=== PATIENT | male | born 1970 | race Two or more races ===

== ENCOUNTER 2025-07-05 15:50 | Inpatient (IN) | payer BC, SELFPAY ==
[2025-07-05] VITALS (7 sets, daily range): BP systolic 120–149; BP diastolic 76–96; PULSE 69–84; RESP 18–20; TEMP 37.2; O2SAT 95–99; BMI 29.9
--- NOTE | 2025-07-05 15:57 | EKG_ITS ---
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
--- NOTE | 2025-07-05 16:23 | XR_ITS ---
Examination: PA lateral chest 2 views TECHNIQUE: Upright PA lateral chest 2 views Date and time: July 05, 2025 1630 hours INDICATIONS: Chest pain hypertension shortness of breath 2 days FINDINGS: Normal heart size No pneumonia or pulmonary edema. Intact osseous structures IMPRESSION: No active disease.
--- NOTE | 2025-07-05 16:23 | PD.EDRME ---
Rapid Medical Screening Exam RME Arrival date/time: 07/05/25 15:50 54-year-old male presents emergency department today for complaint of chest pain ongoing x 3 days patient reports he originally woke up with chest pain 3 nights ago. Patient does report taking Cosentyx as well as testosterone Patient to be seen in the main ER for further evaluation Chief Complaint: Chest Pain Vital signs: Vital Signs Temperature 99 F 07/05/25 16:08 Pulse Rate 79 07/05/25 16:08 Respiratory Rate 18 07/05/25 16:08 Blood Pressure 149/92 H 07/05/25 16:08 Pulse Oximetry (%) 99 07/05/25 16:08 Oxygen Delivery Method Room Air 07/05/25 16:08
[2025-07-05 17:04] LABS: Collection Type, Urine Clean Catch; RBC,Urine 0 /hpf (0-3); Squamous Epithelial Cell,Urine 0 /hpf (0-5); WBC,Urine 0 /hpf (0-5)
[2025-07-05 17:21] LABS: Bilirubin,Urine Negative (Negative); Blood,Urine Negative (Negative); Clarity,Urine Clear (Clear/Hazy); Color,Urine Lt Yellow (Lt Yel-Yel); Glucose, Urine Negative (Negative); Ketones,Urine Negative (Negative); Leukocyte Esterase,Urine Negative (Negative); Nitrite,Urine Negative (Negative); PH,Urine 7.0 (5.0-7.0); Protein,Urine Negative (Neg - Trace); Specific Gravity,Urine 1.020 (1.001-1.035); Urobilinogen,Urine 1.0 mg/dL (0.0-1.0)
[2025-07-05 17:22] LABS: Basophils # (Auto) 0.0 Thou/mm3 (0.0-0.2); Basophils % (Auto) 0 % (0-2.5); Eosinophils # (Auto) 0.1 Thou/mm3 (0.0-0.5); Eosinophils % (Auto) 1 % (0-10); Hematocrit 46.1 % (41.0-53.0); Hemoglobin 16.0 g/dL (13.5-16.0); Immature Granulocytes Auto 0.02 Thou/mm3 (0.00-0.00); Lymphocytes # (Auto) 1.7 Thou/mm3 (1.0-4.8); Lymphocytes % (Auto) 24 % (10-50); Mean Corpuscular HGB Conc 34.7 g/dl (31.0-37.0); Mean Corpuscular Hemoglobin 32.5 pg (25.0-35.0); Mean Corpuscular Volume 94 fL (80-100); Monocytes # (Auto) 0.7 Thou/mm3 (0.0-0.8); Monocytes % (Auto) 10 % (0-12); Neutrophils # (Auto) 4.4 Thou/mm3 (1.8-7.7); Neutrophils % (Auto) 64 % (37-80); Nucleated Red Blood Cell # 0.00 Thou/mm3 (0.00-0.00); Nucleated Red Blood Cell % 0 /100 WBC (0); Platelet Count 200 Thou/mm3 (140-440); RDW Standard Deviation 42.4 fL (35.1-43.9); Red Blood Count 4.93 Miln/mm3 (4.50-5.90); White Blood Count 6.8 Thou/mm3 (3.8-10.6)
[2025-07-05 17:31] LABS: INR 1.0 (0.9-1.3); Partial Thromboplastin Time 26.6 Seconds (22.0-36.0); Prothrombin Time 10.9 Seconds (9.0-12.2)
[2025-07-05 17:42] LABS: Amphetamine/Methamp Scrn,U Negative (Negative); Barbiturate Screen,Urine Negative (Negative); Benzodiazepines Screen,Urine Negative (Negative); Benzoylecgonine Screen, Ur Negative (Negative); Fentanyl Screen,Urine Negative (Negative); Opiate Screen,Urine Negative (Negative); THC Screen,Urine Negative (Negative)
[2025-07-05 17:43] LABS: B-Type Natriuretic Peptide 238 pg/mL (0-100)
[2025-07-05 17:47] LABS: Alanine Aminotransferase 29 U/L (10-49); Albumin, Serum 4.4 gm/dL (3.5-5.0); Albumin/Globulin Ratio 1.8 (1.2-2.2); Alkaline Phosphatase 94 U/L (46-116); Anion Gap 9 (7-16); Aspartate Amino Transferase 53 U/L (0-34); BUN/Creatinine Ratio 11 Ratio (12-20); Bilirubin,Total 0.7 mg/dL (0.3-1.2); Blood Urea Nitrogen 9 mg/dL (9-23); Calcium 9.4 mg/dL (8.3-10.6); Calcium (Corrected) 9.4 mg/dL (8.5-10.1); Carbon Dioxide 26.5 mMol/L (20.0-31.0); Chloride 105 mMol/L (98-107); Creatinine (Component) 0.8 mg/dL (0.6-1.3); Globulin 2.5 gm/dL (2.3-3.5); Glucose 85 mg/dL (74-106); Magnesium 1.7 mg/dL (1.6-2.6); Osmolality,Calculated 277 (275-295); Potassium 4.2 mMol/L (3.4-5.1); Sodium 140 mMol/L (136-145); Total Protein 6.9 gm/dL (5.7-8.2); eGFR > 60 See Note
[2025-07-05 17:49] LABS: Bacteria,Urine Rare
[2025-07-05 18:00] LABS: Troponin I 9.023 ng/mL (0.0-0.045)
[2025-07-05] MEDS: TICAGRELOR 90 MG TABLET 180 MG PO (18:45)
[2025-07-05] MEDS: ASPIRIN 81 MG CHEW 324 MG PO (18:46)
--- NOTE | 2025-07-05 18:48 | EDNOTE_ITS ---
ED Chest Pain RME/HPI General Chief Complaint: Chest Pain Stated Complaint: Chest pain X 3 days, SOB Time Seen by Provider: 07/05/25 17:58 Arrival date/time: 07/05/25 15:50 RME / HPI RME / HPI narrative: 07/05/25 15:50 54-year-old male presents emergency department today for complaint of chest pain ongoing x 3 days patient reports he originally woke up with chest pain 3 nights ago. Patient does report taking Cosentyx as well as testosterone Patient to be seen in the main ER for further evaluation --------- See MDM for HPI documentation. Related Data Home Medications ?Medication ?Instructions ?Recorded ?Confirmed guselkumab 100 mg/mL subcutaneous See Rx Instructions .Route .COMPLEX 03/13/23 03/14/23 auto-injector (Tremfya) Allergies Allergy/AdvReac Type Severity Reaction Status Date / Time No Known Allergies Allergy Verified 07/05/25 15:56 Review of Systems Review of Systems Systems Reviewed: All systems reviewed, normal except as documented Past Medical History Past Medical History NEUROLOGIC: Negative Neurological Disorders or Seizures CARDIAC: Negative Congestive Heart Failure RESPIRATORY: Negative Chronic Obstructive Pulmonary Disease (COPD) GENITOURINARY: Negative Renal Disease MUSCULOSKELETAL: Negative Musculoskeletal Disorders ENDOCRINE: Negative Diabetes Mellitus Type 1 or Diabetes Mellitus Type 2 OTHER HISTORY: Positive Chicken Pox; Negative Autoimmune Disease, Blood Transfusions or Anesthesia Reactions Family History FAMILY HISTORY: Positive Family Cancer (MATERNAL AUNT) Surgical History SURGICAL: Positive Abdominal Surgery Social History SMOKING STATUS: Current every day smoker SUBSTANCE USE: does not use ED Exam Narrative Physical exam: See MDM for physical exam documentation. Course Course Course Narrative: CXR is ordered for determining the etiology of chest pain. Quality Measures none Orders Category Date Time Status EKG (ED ONLY) *Do not use* NOW Care 07/05/25 15:57 Completed Insert IV NOW Care 07/05/25 18:34 Active NPO after Midnight ONCE Care 07/05/25 21:26 Active Notify provider NOW Care 07/05/25 18:35 Active Consult to Cardiology Stat Cons 07/05/25 19:54 Ordered Diet NPO after Midnight Diet 07/06/25 00:01 Active EKG (ED Only) Stat Exams 07/05/25 15:57 Draft XR chest 2V Stat Exams 07/05/25 16:23 Completed B-Type Natriuretic Peptide Stat Lab 07/05/25 16:45 Completed CBC Stat Lab 07/05/25 16:45 Completed Comprehensive Metabolic Panel Stat Lab 07/05/25 16:45 Completed Drug Screen,Urine Stat Lab 07/05/25 16:55 Completed Hemoglobin A1C [Glycohemoglobin w (eAG)] AM DRAW Lab 07/06/25 05:00 Ordered Lipid Panel AM DRAW Lab 07/06/25 05:00 Ordered Magnesium Stat Lab 07/05/25 16:45 Completed PT [Prothrombin Time with INR] AM DRAW Lab 07/06/25 05:00 Ordered PTT [Partial Thromboplastin Time] Stat Lab 07/06/25 01:30 Ordered Partial Thromboplastin Time AM DRAW Lab 07/07/25 05:00 Ordered Partial Thromboplastin Time Stat Lab 07/05/25 16:45 Completed Prothrombin Time with INR AM DRAW Lab 07/07/25 05:00 Ordered Prothrombin Time with INR Stat Lab 07/05/25 16:45 Completed Troponin I Q6HR Lab 07/06/25 00:00 Ordered Troponin I Q6HR Lab 07/06/25 06:00 Ordered Troponin I Q6HR Lab 07/06/25 12:00 Ordered Troponin I Stat Lab 07/05/25 16:45 Completed Troponin I Stat Lab 07/05/25 21:46 Completed Urinalysis Stat Lab 07/05/25 16:55 Completed Aspirin Chew Med 07/05/25 18:35 Discontinued 324 mg PO X1 ONE Aspirin [Ecotrin] Med 07/06/25 09:00 Active 81 mg PO QDAY Atorvastatin Calcium [Lipitor] Med 07/05/25 21:30 Active 80 mg PO HS Heparin Inj Med 07/05/25 19:00 Discontinued 4,000 unit IV X1 ONE Heparin/D5w 25K 250 ML Ivpb [Heparin in D5w Ivpb] Med 07/05/25 19:00 Active 25,000 unit in 250 ml IV 11.543 units/kg/hr Metoprolol Succinate Xl [Toprol Xl] Med 07/06/25 09:00 Active 25 mg PO QDAY Metoprolol Succinate Xl [Toprol Xl] Med 07/05/25 18:52 Discontinued 25 mg PO X1 ONE Nitroglycerin Oint 2% [Nitro-paste Oint 2%] Med 07/05/25 18:52 Discontinued 1 inch TOP X1 ONE Nitroglycerin [Nitro-dur Patch] Med 07/05/25 21:28 Discontinued 0.4 mg TOP Q6HR PRN Ticagrelor [Brilinta] Med 07/05/25 18:35 Discontinued 180 mg PO X1 ONE Ticagrelor [Brilinta] Med 07/06/25 09:00 Active 90 mg PO BID Vital Signs Vital signs: Vital Signs Temperature 99 F 07/05/25 16:08 Pulse Rate 79 07/05/25 16:08 Respiratory Rate 18 07/05/25 16:08 Blood Pressure 149/92 H 07/05/25 16:08 Pulse Oximetry (%) 99 07/05/25 16:08 Oxygen Delivery Method Room Air 07/05/25 16:08 Chest Pain MDM Narrative MDM Narrative:: This section includes all my notes and documentations, including HPI, PE, and ED course. Damián Washington MD HPI: 54yo male here with chest pain shortness of breath and fatigue and malaise for the last few days. Severely worse at the gym a couple of hours ago. No other complaints. ROS: All negative except as documented in HPI. Physical Exam: General: Alert and oriented. No acute distress when remaining still. Eyes: Conjunctivae and lids clear. ENT: No nasal congestion. Neck: Supple. Heart: RRR. Lungs: No respiratory distress. Good air movement. No rhonchi, wheezing, rales. Abdomen: Soft and nontender. Skin: Warm and dry. Neuro: Alert and oriented X 3. I reviewed all diagnostic test results. My interpretation of the EKG is sinus rhythm with no acute ST?T changes. My interpretation of the chest x-ray is NAD. Blood and urine tests tests remarkable for troponin 9.023. At this point, diagnoses include NSTEMI. Treatment here from me included ASA, heparin bolus and drip, oral metoprolol, topical nitroglycerin, and oral Brilinta. I discussed the case with our mounter brass wind instruments and hospitalist. About the presentation and exam and diagnostics and treatments here. And need of further care in the hospital. Will accept the patient. Damián Washington MD Patient data External records reviewed:: [facility] previous records (Per chart review, patient has no relevant previous ED visits.) Clinical information provided by:: patient Social determinants that could affect healthcare access:: none Patient has the following chronic illnesses:: none How is presenting disease/condition affected by chronic disease/condition?: no chronic disease Evaluation data The following diagnostics were reviewed and interpreted by me:: lab results, radiology exam(s) and EKG tracing(s) Lab and/or radiology exams considered but not ordered:: none Interpretation Summary: I reviewed all diagnostic test results. My interpretation of the EKG is sinus rhythm with no acute ST?T changes. My interpretation of the chest x-ray is NAD. Blood and urine tests tests remarkable for troponin 9.023. Medications / Prescriptions Medications or Prescriptions considered but not ordered:: none Medication administrations:: Medication Administration History Acetaminophen (Acetaminophen 325 Mg Tablet) 650 mg PO Q6H PRN PRN Reason: Fever >100.4 Stop: 08/04/25 21:34 Acetaminophen (Acetaminophen 325 Mg Tablet) 650 mg PO Q6H PRN PRN Reason: PAIN SCALE 1-3 (mild Stop: 08/04/25 21:34 Aspirin (Aspirin Ec 81 Mg Tabec) 81 mg PO QDAY ON LICENSE OF [facility] Stop: 08/05/25 08:59 Atorvastatin Calcium (Atorvastatin Calcium 20 Mg Tablet) 80 mg PO HS ON LICENSE OF [facility] Stop: 08/04/25 21:29 Last Admin: 07/05/25 22:34 Dose: 80 mg Documented By: LIYAH Hydroxyzine HCl (Hydroxyzine Hcl 25 Mg Tablet) 25 mg PO Q6HR PRN PRN Reason: ANXIETY/Insomnia Stop: 08/04/25 21:58 Last Admin: 07/05/25 23:02 Dose: 25 mg Documented By: LIYAH Heparin Sodium/Dextrose (Heparin In D5w Ivpb) 25,000 unit in 250 mls @ 10 mls/hr IV .Q24H ON LICENSE OF [facility]; Protocol Stop: 07/19/25 18:59 Last Admin: 07/05/25 19:30 Dose: 11.543 units/kg/hr, 10 mls/hr Documented By: SF Co-signed By: LIYAH Metoprolol Succinate (Metoprolol Succinate Xl 25 Mg Tabcr) 25 mg PO QDAY ON LICENSE OF [facility] Stop: 08/05/25 08:59 Nitroglycerin (Nitroglycerin Oint 2% 1 Inch Packet) 1 inch TOP Q6HR ON LICENSE OF [facility] Stop: 08/05/25 00:00 Ticagrelor (Ticagrelor 90 Mg Tablet) 90 mg PO BID ON LICENSE OF [facility] Stop: 08/05/25 08:59 Discontinued Medications Aspirin (Aspirin 81 Mg Chew) 324 mg PO X1 ONE Stop: 07/05/25 18:36 Last Admin: 07/05/25 18:46 Dose: 324 mg Documented By: ANGY Heparin Sodium (Porcine) (Heparin Sod Inj 5000 Unit/Ml Vial) 4,000 unit IV X1 ONE; Protocol Stop: 07/05/25 19:01 Last Admin: 07/05/25 19:29 Dose: 4,000 unit Documented By: DIONY Co-signed By: LIYAH Magnesium Sulfate (Magnesium Sulfate Ivpb) 2 gm in 50 mls @ 25 mls/hr IV X1 ONE Stop: 07/05/25 23:55 Last Admin: 07/05/25 22:44 Dose: 25 mls/hr Documented By: DIONY Metoprolol Succinate (Metoprolol Succinate Xl 25 Mg Tabcr) 25 mg PO X1 ONE Stop: 07/05/25 18:53 Last Admin: 07/05/25 19:24 Dose: 25 mg Documented By: DIONY Nitroglycerin (Nitroglycerin Oint 2% 1 Inch Packet) 1 inch TOP X1 ONE Stop: 07/05/25 18:53 Last Admin: 07/05/25 19:22 Dose: 1 inch Documented By: DIONY Nitroglycerin (Nitroglycerin 0.4 Mg/Hr Patch.Td24) 0.4 mg TOP Q6HR PRN PRN Reason: CHEST PAIN Stop: 08/05/25 00:00 Ticagrelor (Ticagrelor 90 Mg Tablet) 180 mg PO X1 ONE Stop: 07/05/25 18:36 Last Admin: 07/05/25 18:45 Dose: 180 mg Documented By: ANGY Treatment here from me included ASA, heparin bolus and drip, oral metoprolol, topical nitroglycerin, and oral Brilinta. Consultations Consultation(s) initiated? (list below): Yes Consultation #1 (Physician, Specialty, Details): I discussed the case with our mounter brass wind instruments and hospitalist. About the presentation and exam and diagnostics and treatments here. And need of further care in the hospital. Will accept the patient. Diagnosis Chest Pain Differential Diagnosis: pneumothorax, stable angina, unstable angina pectoris, atypical chest pain, st elevation myocardial infarction, costochondritis, chest pain, biliary colic and other (Anxiety) Most likely diagnosis given after review of the tests above:: NSTEMI Admission Indicated Admission indicated?: indicated Explain why admission is indicated or not indicated:: NSTEMI Admission Request Was there a request for admission?: Yes Admission Attestation Admission request attestation: Discussed case with Hospitalist service regarding admission. Discussed patients ED course, exam findings, labs, and radiology results. The Hospitalist [agrees] to accept the patient for admission. Disposition Plan Disposition Plan: Admit Discharge Plan Plan Patient Disposition: Admit Acute Care w/in Hospital Problem List Clinical Impression: Non-ST elevation CA (NSTEMI)
[2025-07-05] MEDS: NITROGLYCERIN OINT 2% 1 INCH PACKET TOP (19:22)
[2025-07-05] MEDS: METOPROLOL SUCCINATE XL 25 MG TABCR PO (19:24)
[2025-07-05] MEDS: HEPARIN SOD INJ 5000 UNIT/ML VIAL 4000 UNIT IV (19:29)
[2025-07-05] MEDS: Heparin/D5w 25K 250 ML Ivpb 25,000 UNIT/250 ML BAG 10 UNIT IV (19:30)
--- NOTE | 2025-07-05 20:42 | ESCONSULT_ITS ---
<Statement entered by Britt Guardado MD - 07/07/25 22:45> I personally examined and evaluated this patient who is 54-year-old male with history of no major medical problems to the hospital severe chest pain lasting 2 days started about Friday night 2 days ago the pain lasted a couple days with EKG changes and troponin elevation suggestive of acute non-ST segment elevation myocardial infarction possible circumflex RCA occlusion. The patient is doing physician Dr. BENITO BLEVINS and patient is stable will start on aspirin Brilinta and heparin scheduled for cholangiogram in the morning condition stable not have any significant chest pain he has mild tightness in the chest. HPI Data of Consult Primary Care Provider: Physician No Primary/Family Consult Narrative History of present illness: A 54-year-old man with a history of psoriasis, psoriatic arthritis (on Cosentyx), and testosterone replacement therapy presented with a three-day history of chest pain. He reported waking up on Friday with pressure-like discomfort in the chest associated with fatigue and mild shortness of breath. The pain intensified at the gym on the day of presentation, prompting an ED visit. He described the pain as a tightness radiating toward the throat with a subsequent sore throat sensation. He denied jaw or arm radiation, diaphoresis, syncope, nausea, or vomiting. He has no past history of coronary artery disease, hypertension, diabetes, or hyperlipidemia, and has never undergone prior chest pain evaluation. He smokes daily, drinks socially with heavier intake on weekends, and works in a high- stress on-call position with the [employer], though his job is not physically demanding. In the ED, his blood pressure decreased from 149/92 to 137/76, heart rate remained stable, and oxygen saturation was normal. EKG showed sinus rhythm with findings consistent with an inferior AL of indeterminate age and T-wave changes. Lab results were significant for troponin 9.023, BNP 238, and AST 53. Chest X- ray revealed no acute disease. Cardiology was consulted, and the patient was diagnosed with NSTEMI. He was started on HEPARIN infusion, ASPIRIN, BRILINTA, NITROGLYCERIN, and METOPROLOL, with plans for cardiac catheterization the following morning. cc:: cc: Review of Systems Review of Systems Narrative Review of Systems: GENERAL: Denies fevers/chills or diaphoresis. HEENT: Denies headache or visual/hearing changes. Denies nasal discharge. NEURO: Denies unusual weakness or difficulty speaking. CARDIO: + chest pain, + palpitations. PULM: + SOB. No coughing, or wheezing. GI: Denies abdominal pain, N/V/C/D/reflux/gas, bright red blood per rectum or melena. Reports having BMs. URO: Denies burning/itching/pain/urinary changes. MSK/EXT/SKIN: Denies joint/skeletal/muscle pain, issues/changes in upper or lower extremities, itchiness, or superficial pain. PSYCH: Cooperative, pleasant mood & affect. The rest of the review of systems is otherwise negative. Exam Vital Signs Temp Pulse Resp BP Pulse Ox O2 Del Method 98.9 F 78 20 136/96 H 96 Room Air 07/05/25 20:36 07/05/25 20:36 07/05/25 20:36 07/05/25 20:36 07/05/25 20:36 07/05/25 20:36 Narrative Exam GENERAL * Normal appearing male HEENT * NCAT.?PRAVIN. Oral mucosa is moist. Patent Nares NECK * Supple, nontender, no JVD. CHEST * RRR, no m/g/r * CTAB, no w/r/r, symmetrical expansion. ABDOMEN * Soft, flat, nontender. No guarding/rebound tenderness/masses. * Bowel sounds presents EXTREMITIES * No edema/cyanosis.? SKIN * Warm and dry, no jaundice/rashes. NEUROMUSCULAR * No lumbar or midline, no CVA, no paraspinal muscle spasm or tenderness. * Moves all 4 extremities well, with full ROM and good CSM. * BENDER x4, CN II-XII grossly intact. * No focal neurologic deficits. PSYCHIATRY * Normal mood and affect, cooperative, no SI or HI or hallucinations. Results Labs 07/05/25 16:45 07/05/25 16:45 Labs: Short CBC 07/05/25 Range/Units 16:45 WBC 6.8 (3.8-10.6) Thou/mm3 Hgb 16.0 (13.5-16.0) g/dL Hct 46.1 (41.0-53.0) % Plt Count 200 (140-440) Thou/mm3 BMP 07/05/25 16:45 Sodium 140 Potassium 4.2 Chloride 105 Carbon Dioxide 26.5 BUN 9 Creatinine 0.8 Glucose 85 Calcium 9.4 Cardiac Enzymes 07/05/25 Range/Units 16:45 Troponin I 9.023 H* (0.0-0.045) ng/mL Liver Function 07/05/25 Range/Units 16:45 Total Bilirubin 0.7 (0.3-1.2) mg/dL AST 53 H (0-34) U/L ALT 29 (10-49) U/L Alkaline Phosphatase 94 (46-116) U/L Albumin 4.4 (3.5-5.0) gm/dL Urine 07/05/25 Range/Units 16:55 Urine Color Lt Yellow (Lt Yel-Yel) Urine Clarity Clear (Clear/Hazy) Urine pH 7.0 (5.0-7.0) Ur Specific [facility] 1.020 (1.001-1.035) Urine Protein Negative (Neg - Trace) Urine Glucose (UA) Negative (Negative) Quality Measures Quality Measures none Medications Home Medications and Allergies Home Medications ?Medication ?Instructions ?Recorded ?Confirmed ?Type guselkumab 100 mg/mL subcutaneous See Rx Instructions .Route .COMPLEX 03/13/23 03/14/23 History auto-injector (Tremfya) Allergies Allergy/AdvReac Type Severity Reaction Status Date / Time No Known Allergies Allergy Verified 07/05/25 15:56 Visit Medications Heparin Sodium/Dextrose (Heparin In D5w Ivpb) 25,000 unit in 250 mls @ 10 mls/hr IV .Q24H ADRI; Protocol Stop: 07/19/25 18:59 Last Admin: 07/05/25 19:30 Dose: 11.543 units/kg/hr, 10 mls/hr Discontinued Medications Aspirin (Aspirin 81 Mg Chew) 324 mg PO X1 ONE Stop: 07/05/25 18:36 Last Admin: 07/05/25 18:46 Dose: 324 mg Heparin Sodium (Porcine) (Heparin Sod Inj 5000 Unit/Ml Vial) 4,000 unit IV X1 ONE; Protocol Stop: 07/05/25 19:01 Last Admin: 07/05/25 19:29 Dose: 4,000 unit Metoprolol Succinate (Metoprolol Succinate Xl 25 Mg Tabcr) 25 mg PO X1 ONE Stop: 07/05/25 18:53 Last Admin: 07/05/25 19:24 Dose: 25 mg Nitroglycerin (Nitroglycerin Oint 2% 1 Inch Packet) 1 inch TOP X1 ONE Stop: 07/05/25 18:53 Last Admin: 07/05/25 19:22 Dose: 1 inch Ticagrelor (Ticagrelor 90 Mg Tablet) 180 mg PO X1 ONE Stop: 07/05/25 18:36 Last Admin: 07/05/25 18:45 Dose: 180 mg Assessment & Plan Plan A 54-year-old man with psoriasis, psoriatic arthritis (on COSENTYX), and testosterone replacement presented with 3 days of chest pain described as pressure-like and radiating to the throat, worsened with exertion. He denied jaw/arm pain, diaphoresis, or GI symptoms. No history of CAD, HTN, DM, or HLD. Social history notable for daily smoking, social alcohol use, and high job stress. In the ED, vitals were stable, EKG showed sinus rhythm with inferior AL of indeterminate age and T-wave changes. Labs revealed TROPONIN 9.023, BNP 238, AST 53. CXR was unremarkable. He was diagnosed with NSTEMI and started on HEPARIN infusion, ASPIRIN, BRILINTA, NITROGLYCERIN, and METOPROLOL. 1. NSTEMI 2. Elevated troponin 3. Tobacco use disorder 4. TESTOSTERONE use RECOMMENDATIONS: Patient admitted for further management of NSTEMI. Cardiology recommends early invasive strategy with cardiac catheterization in the morning for definitive diagnosis and possible PCI. He remains hemodynamically stable with preserved oxygenation. Guideline-directed medical therapy initiated with DAPT (ASPIRIN + BRILINTA), beta-michelle (METOPROLOL), anticoagulation (HEPARIN), and anti-anginal therapy (NITROGLYCERIN). Will monitor serial troponins, telemetry, and strict vitals. Risk stratification places him at high risk (elevated troponin, ischemic EKG changes, ongoing symptoms, smoking history) per FAMILIA/ERICA scoring, supporting urgent cath. Secondary prevention to include initiation of high-intensity statin post-cath, counseling on smoking cessation, alcohol moderation, and long-term risk factor modification. Maintain K>4.0 and Mag>2.0. Case was discussed with attending physician, Dr. Guardado. Benito Blevins, DO PGY II This document was transcribed using voice recognition technology. Minor inaccuracies may be present.
--- NOTE | 2025-07-05 21:39 | ESHP_ITS ---
Documentation for date of: 07/05/25 [facility] History of Present Illness Chief complaint: Chest pain 3 days, shortness of breath History of present illness: 54-year-old male with history of psoriasis and psoriatic arthritis on Cosentyx, and testosterone replacement therapy, who presents with chest pain ongoing for 3 days. He reports waking up Friday with pressure-like chest pain associated with fatigue and mild shortness of breath. Pain worsened at the gym today, prompting ED visit. Describes pain as tightness radiating to throat with sore throat sensation afterward. No radiation to jaw or arm, no diaphoresis, no syncope, no nausea/vomiting. He denies prior cardiac disease, hypertension, diabetes, or hyperlipidemia. No prior chest pain workups. 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 In the ED: BP 149/92 --> 137/76, HR stable, SpO2 normal. EKG: sinus rhythm, inferior NC of indeterminate age, T-wave abnormalities. Labs: troponin 9.023, BNP 238, AST 53. CXR NAD. Cardiology consulted, diagnosed NSTEMI, started heparin drip, ASA, Brilinta, nitro, metoprolol, plan for cath in AM. Review of Systems (ROS): * Constitutional: +fatigue, -fever, -chills, -weight loss * Cardiac: +chest tightness, ?palpitations, ?syncope * Respiratory: +SOB, ?cough, ?hemoptysis * GI: ?abdominal pain, -nausea/vomiting * : ?dysuria, ?hematuria * Neuro: ?weakness, ?vision/speech change * MSK: +joint/back pain (psoriatic arthritis) * Skin: +psoriasis * Psych: occasional anxiety All other systems negative. 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, high stress, always environmental health and safety manager * Lives with partner Exam Vital Signs Temp Pulse Resp BP Pulse Ox O2 Del Method 98.9 F 78 20 136/96 H 96 Room Air 07/05/25 20:36 07/05/25 20:36 07/05/25 20:36 07/05/25 20:36 07/05/25 20:36 07/05/25 20:36 Narrative Exam General: Alert, oriented, NAD at rest HEENT: Clear conjunctiva, throat with mild soreness by history Neck: Supple, no JVD CV: RRR, no murmurs/rubs/gallops Lungs: Clear, no distress Chest: Mild bilateral gynecomastia noted, nontender, no nipple discharge Abdomen: Soft, NTND, +BS Back: No CVA tenderness Skin: Warm, dry, no psoriatic lesions noted on exam Neuro: A&O ?3, no focal deficits Results: Labs 07/05/25 16:45 07/05/25 16:45 Labs: Short CBC 07/05/25 Range/Units 16:45 WBC 6.8 (3.8-10.6) Thou/mm3 Hgb 16.0 (13.5-16.0) g/dL Hct 46.1 (41.0-53.0) % Plt Count 200 (140-440) Thou/mm3 BMP 07/05/25 16:45 Sodium 140 Potassium 4.2 Chloride 105 Carbon Dioxide 26.5 BUN 9 Creatinine 0.8 Glucose 85 Calcium 9.4 Cardiac Enzymes 07/05/25 Range/Units 16:45 Troponin I 9.023 H* (0.0-0.045) ng/mL Liver Function 07/05/25 Range/Units 16:45 Total Bilirubin 0.7 (0.3-1.2) mg/dL AST 53 H (0-34) U/L ALT 29 (10-49) U/L Alkaline Phosphatase 94 (46-116) U/L Albumin 4.4 (3.5-5.0) gm/dL Urine 07/05/25 Range/Units 16:55 Urine Color Lt Yellow (Lt Yel-Yel) Urine Clarity Clear (Clear/Hazy) Urine pH 7.0 (5.0-7.0) Ur Specific [place] 1.020 (1.001-1.035) Urine Protein Negative (Neg - Trace) Urine Glucose (UA) Negative (Negative) Quality Measures Quality Measures VTE therapy Medications Home Medications and Allergies Home Medications ?Medication ?Instructions ?Recorded ?Confirmed ?Type guselkumab 100 mg/mL subcutaneous See Rx Instructions .Route .COMPLEX 03/13/23 03/14/23 History auto-injector (Tremfya) Allergies Allergy/AdvReac Type Severity Reaction Status Date / Time No Known Allergies Allergy Verified 07/05/25 15:56 Visit Medications Heparin Sodium/Dextrose (Heparin In D5w Ivpb) 25,000 unit in 250 mls @ 10 mls/hr IV .Q24H ADRI; Protocol Stop: 07/19/25 18:59 Last Admin: 07/05/25 19:30 Dose: 11.543 units/kg/hr, 10 mls/hr Discontinued Medications Aspirin (Aspirin 81 Mg Chew) 324 mg PO X1 ONE Stop: 07/05/25 18:36 Last Admin: 07/05/25 18:46 Dose: 324 mg Heparin Sodium (Porcine) (Heparin Sod Inj 5000 Unit/Ml Vial) 4,000 unit IV X1 ONE; Protocol Stop: 07/05/25 19:01 Last Admin: 07/05/25 19:29 Dose: 4,000 unit Metoprolol Succinate (Metoprolol Succinate Xl 25 Mg Tabcr) 25 mg PO X1 ONE Stop: 07/05/25 18:53 Last Admin: 07/05/25 19:24 Dose: 25 mg Nitroglycerin (Nitroglycerin Oint 2% 1 Inch Packet) 1 inch TOP X1 ONE Stop: 07/05/25 18:53 Last Admin: 07/05/25 19:22 Dose: 1 inch Ticagrelor (Ticagrelor 90 Mg Tablet) 180 mg PO X1 ONE Stop: 07/05/25 18:36 Last Admin: 07/05/25 18:45 Dose: 180 mg Assessment & Plan Plan 54-year-old male with psoriasis/psoriatic arthritis on Cosentyx and testosterone therapy, current smoker, presenting with 3 days of chest pain and shortness of breath, found to have elevated troponin and ischemic EKG changes, consistent with NSTEMI, type I. # NSTEMI, type 1 54yo M with 3 days of chest pain/SOB, troponin 9.023 EKG with inferior NC and T-wave abnormalities. Cardiology consulted, plan for cath tomorrow. Plan: * Continue heparin drip per protocol * Aspirin 325 mg load then 81 mg daily * Brilinta 90 mg BID * Metoprolol succinate 25 mg daily (hold if HR < 50) * Nitro patch q6h PRN (hold SBP < 100, MAP < 65, HR < 50 or) * Atorvastatin 80 mg nightly * NPO after midnight, cath in AM * Repeat EKG with recurrent pain * Trend troponins # Hyperlipidemia screening No prior history, screening warranted. Plan: * Lipid panel AM * Continue atorvastatin 80 mg nightly # Diabetes screening No prior DM, glucose 85. Plan: * Order HbA1c # Tobacco use disorder Current daily smoker. Plan: * Counseling provided * Offer nicotine patch/gum if needed # Psoriasis / Psoriatic arthritis On Cosentyx, switched from Tremfya, ongoing joint pain. Plan: * Hold biologic while inpatient * Resume with his outpatient derm/rheum specialist # Testosterone replacement therapy # Gynecomastia On TRT ?2 yrs, possible contributor to CAD risk, with noted gynecomastia. Plan: * Holding inpatient * Monitor clinically * Outpatient endocrinology/PCP follow-up for risk/benefit discussion Health Maintenance Disposition: Admit to telemetry, cardiology following Feeding: Cardiac diet, NPO after midnight Thromboprophylaxis: On therapeutic heparin drip GI prophylaxis: Not indicated Code Status: Full Code ----- Plan discussed with attending physician Dr. Yuri Christiansen MD PGY-1 Internal Medicine Attending Provider Attestation/Addendum I have examined the patient, reviewed labs and imaging findings, discussed the case with the resident(s), and reviewed entered orders. I agree with the plan of care as outlined in this note, with these additional summaries/recommendations: After examination of the patient and review of the clinical data, I feel that this patient needs admission to the hospital for further treatment and evaluation. Patient is a 54-year-old male with a medical history of psoriatic arthritis, low testosterone, chronic smoker, and migraine headaches presents to [facility] emergency department on 07/05/2025 with chief complaint of chest pain. Patient and seen at bedside. Patient presented with chest pain/pressure, substernal, and radiation to the neck. Given typical features, this is concerning for NSTEMI type I from ACS or plaque rupture. FAMILIA score 2 points indicating 8% risk at 14 days of all cause mortality. Sana score 74 points indicating 1.8% probability of from admission to 6 months. Troponin elevated to 9.023. EKG shows ST changes in aVL, V5, and V6. Admit to telemetry, troponin until downtrending, serial EKGs if chest pain returns, and echocardiogram. Order CAD risk factor screening with A1c, lipid panel, TSH. Titrate O2 as needed for symptoms. For antiplatelet therapy patient received loading dose of aspirin 325 mg p.o. x 1 and Brilinta. Continue aspirin 81 mg p.o. daily and will follow-up with cardiology in AM if additional dose of Brilinta required. Start anticoagulation with heparin gtt. Target APTT of 60 to 80 seconds. Plaque stabilization with atorvastatin 80 mg p.o. nightly. Cardiac remodeling prevention with beta-michelle. We will defer MICHAELA/ARB till after cardiac catheterization. Nitroglycerin or morphine as needed for chest pain. N.p.o. after midnight for cardiac catheterization. In-house cardiology following, recommendations appreciated. We will director of counseling patient on smoking cessation once more improved. He was previously prescribed sumatriptan for migraine headaches and recommended to discontinue given cardiovascular side effects. Patient was also recently prescribed Cosentyx for rheumatoid arthritis which should also be held until reviewed by machinist/machine builder given this medications cardiovascular risk factors. Patient reportedly also takes testosterone replacement therapy and should be held until cleared by cardiology or discontinued. Patient updated on the plan and in agreement. All questions answered to satisfaction. Please see residents note for additional details of management. Dr. Yuri MD
[2025-07-05 22:20] LABS: Troponin I 8.960 ng/mL (0.0-0.045)
[2025-07-05] MEDS: ATORVASTATIN CALCIUM 20 MG TABLET 80 MG PO (22:34)
[2025-07-05] MEDS: Magnesium Sulfate 2 GM Ivpb 2 GM/50 ML BAG IV (22:44)
[2025-07-06] VITALS (23 sets, daily range): BP systolic 104–153; BP diastolic 53–81; PULSE 52–83; RESP 12–98; TEMP 36.2–37.1; O2SAT 96–100
[2025-07-06 01:28] LABS: Troponin I 9.192 ng/mL (0.0-0.045)
[2025-07-06 01:39] LABS: Partial Thromboplastin Time 32.5 Seconds (22.0-36.0)
[2025-07-06] MEDS: HEPARIN SOD INJ 5000 UNIT/ML VIAL 4000 UNIT IV (02:11)
[2025-07-06] MEDS: ACETAMINOPHEN 325 MG TABLET 650 MG PO (03:57)
[2025-07-06] MEDS: TICAGRELOR 90 MG TABLET PO ×2 (07:51→21:33)
[2025-07-06] MEDS: ASPIRIN EC 81 MG TABEC PO (07:51)
--- NOTE | 2025-07-06 09:16 | PC.SS ---
Follow up note: Cath today.
[2025-07-06 10:41] LABS: Basophils # (Auto) 0.0 Thou/mm3 (0.0-0.2); Basophils % (Auto) 1 % (0-2.5); Eosinophils # (Auto) 0.1 Thou/mm3 (0.0-0.5); Eosinophils % (Auto) 2 % (0-10); Hematocrit 44.4 % (41.0-53.0); Hemoglobin 15.6 g/dL (13.5-16.0); Immature Granulocytes Auto 0.02 Thou/mm3 (0.00-0.00); Lymphocytes # (Auto) 2.2 Thou/mm3 (1.0-4.8); Lymphocytes % (Auto) 36 % (10-50); Mean Corpuscular HGB Conc 35.1 g/dl (31.0-37.0); Mean Corpuscular Hemoglobin 33.3 pg (25.0-35.0); Mean Corpuscular Volume 95 fL (80-100); Monocytes # (Auto) 0.6 Thou/mm3 (0.0-0.8); Monocytes % (Auto) 10 % (0-12); Neutrophils # (Auto) 3.1 Thou/mm3 (1.8-7.7); Neutrophils % (Auto) 51 % (37-80); Nucleated Red Blood Cell # 0.00 Thou/mm3 (0.00-0.00); Nucleated Red Blood Cell % 0 /100 WBC (0); Platelet Count 192 Thou/mm3 (140-440); RDW Standard Deviation 43.2 fL (35.1-43.9); Red Blood Count 4.68 Miln/mm3 (4.50-5.90); White Blood Count 6.0 Thou/mm3 (3.8-10.6)
[2025-07-06 10:49] LABS: Glucose Estimated Average 103 mg/dL (80-131); Hemoglobin A1C 5.2 % Hgb (4.8-6.0)
[2025-07-06 11:25] LABS: Alanine Aminotransferase 23 U/L (10-49); Albumin, Serum 4.2 gm/dL (3.5-5.0); Albumin/Globulin Ratio 1.8 (1.2-2.2); Alkaline Phosphatase 91 U/L (46-116); Anion Gap 8 (7-16); Aspartate Amino Transferase 38 U/L (0-34); BUN/Creatinine Ratio 11 Ratio (12-20); Bilirubin,Total 1.6 mg/dL (0.3-1.2); Blood Urea Nitrogen 9 mg/dL (9-23); Calcium 8.7 mg/dL (8.3-10.6); Calcium (Corrected) 8.7 mg/dL (8.5-10.1); Carbon Dioxide 26.8 mMol/L (20.0-31.0); Cardiac Risk Estimate 4.2 RATIO (4.0-6.7); Chloride 105 mMol/L (98-107); Cholesterol 142 mg/dL (132-200); Creatinine (Component) 0.8 mg/dL (0.6-1.3); Estimated Creatinine Clearance 113.5 mL/min (>60); Globulin 2.3 gm/dL (2.3-3.5); Glucose 87 mg/dL (74-106); HDL Cholesterol 34 mg/dL (40-60); LDL Cholesterol,Calculated 87 mg/dL (0-130); Magnesium 2.3 mg/dL (1.6-2.6); Osmolality,Calculated 277 (275-295); Phosphorous 2.3 mg/dL (2.4-5.1); Potassium 4.2 mMol/L (3.4-5.1); Sodium 140 mMol/L (136-145); Thyroid Stimulating Hormone 3.92 uIU/mL (0.55-4.78); Total Protein 6.5 gm/dL (5.7-8.2); Triglycerides 103 mg/dL (30-150); eGFR > 60 See Note
[2025-07-06 11:26] LABS: Troponin I 6.633 ng/mL (0.0-0.045)
[2025-07-06] MEDS: HYDROcodone/APAP 5/325 TABLET 1 TAB PO ×3 (11:34→21:33)
--- NOTE | 2025-07-06 13:01 | PC.NURSE ---
patient transfered back to room [facility]. hand off report given to ephraim toney. patient alert and oriented. ephraim toney and I assessed site and dressing. site is soft, flat, slightly tender, and no signs of hematoma. dressing is clean, dry, and intact.
[2025-07-06] MEDS: METOPROLOL SUCCINATE XL 25 MG TABCR PO (13:09)
[2025-07-06 13:55] LABS: Troponin I 6.529 ng/mL (0.0-0.045)
--- NOTE | 2025-07-06 14:14 | ESPR_ITS ---
<Statement entered by Clifton Jack MD - 07/06/25 14:41> I have reviewed the note and agree with the resident's assessment & plan with exceptions as below. I have personally reviewed labs, imaging, home meds/prior records, examined the patient, formulated and discussed management plan with the IM team. Pt examined at bedside today. Cardiac Cath performed today by Dr. Guardado, pending final report, however pt did receive one stent. Will follow up with patient as he experienced NSTEMI Type I. Will continue with DAPT, BB, high intensity statin and pain control at this time. Cardiology on consult, appreciate recommendations. Cardiac stratification unremarkable, however, pt got NSTEMI type I could be related due to testosterone therapy, depending on how long he has used this, could be related to hyperviscosity and decreased estrogen. Pt will need to stop testesterone at this time due to risk for repeat SC. He will need to follow up with PCP/Endo for alternative therapies. Clifton Jack, PGY-2 Internal Medicine Documentation for date of: 07/06/25 Subjective Subjective Interval history: No acute events overnight. 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 Vital signs and labs reviewed. Patient reports he has had pressure-like chest pain with radiation to throat and shoulders (he doesn't recall which side) since 07/03/25, but worsened about 5-10 minutes after starting weight training at the gym on 07/05 afternoon. Today, after cath, patient noted dyspnea with deep breaths, but denied any at rest. He denied any chest pain, headache, dizziness, or syncope. He denies any questions or concerns at this time. He denies any personal or family cardiac history. and family at bedside. Exam Vital Signs Temp Pulse Resp BP Pulse Ox O2 Del Method 97.4 F 83 17 129/80 99 Room Air 07/06/25 09:46 07/06/25 13:09 07/06/25 12:30 07/06/25 13:09 07/06/25 12:30 07/06/25 12:30 Narrative Exam GENERAL: A&OX3. No acute distress. Not diaphoretic. HEENT: Normocephalic. Moist mucous membranes. No scleral icterus. EOMI CHEST: Gynecomastia present. CV: Regular rate and rhythm. S1 and S2 heard. No murmurs. PULM: No accessory muscle use. CTAB. No wheezing or crackles. EXTREMITIES: No lower extremity edema SKIN: Warm and dry. NEURO: Moving all extremities spontaneously. No aphasia. No facial asymmetry. Present and equal sensation bilaterally on upper and lower face, upper extremities, and lower extremities. PSYCH: Cooperative with exam. Objective Labs 07/06/25 10:06 07/06/25 10:06 Labs: Laboratory Results - last 24 hr 07/05/25 07/05/25 07/05/25 16:45 16:55 21:46 WBC 6.8 RBC 4.93 Hgb 16.0 Hct 46.1 MCV 94 MCH 32.5 MCHC 34.7 RDW Std Deviation 42.4 Plt Count 200 Neut % (Auto) 64 Lymph % (Auto) 24 Walsh % (Auto) 10 Eos % (Auto) 1 Baso % (Auto) 0 Neut # (Auto) 4.4 Lymph # (Auto) 1.7 Walsh # (Auto) 0.7 Eos # (Auto) 0.1 Baso # (Auto) 0.0 Immature Gran # (Auto) 0.02 H Absolute Nucleated RBC 0.00 Immature Gran % 0 Nucleated RBC % 0 PT 10.9 INR 1.0 APTT 26.6 Sodium 140 Potassium 4.2 Chloride 105 Carbon Dioxide 26.5 Anion Gap 9 BUN 9 Creatinine 0.8 Estim Creat Clear Calc Not Performed. eGFR > 60 BUN/Creatinine Ratio 11 L Glucose [address] Glu mg/dL Hemoglobin A1c Calculated Osmolality 277 Calcium 9.4 Corrected Calcium 9.4 Phosphorus Magnesium 1.7 Total Bilirubin 0.7 AST 53 H ALT 29 Alkaline Phosphatase 94 Troponin I 9.023 H* 8.960 H* B-Natriuretic Peptide 238 H Total Protein 6.9 Albumin 4.4 Globulin 2.5 Albumin/Globulin Ratio 1.8 Triglycerides Cholesterol LDL Cholesterol, Calc HDL Cholesterol Cholesterol/HDL Ratio TSH Ur Collection Type Clean Catch Urine Color Lt Yellow Urine Clarity Clear Urine pH 7.0 Ur Specific [place] 1.020 Urine Protein Negative Urine Glucose (UA) Negative Urine Ketones Negative Urine Blood Negative Urine Nitrite Negative Urine Bilirubin Negative Urine Urobilinogen (Auto) 1.0 Ur Leukocyte Esterase Negative Urine RBC 0 Urine WBC 0 Ur Squamous Epith Cells 0 Urine Bacteria Rare Urine Opiates Screen Negative Urine Fentanyl Screen Negative Ur Barbiturates Screen Negative U Amphetamin/Meth Scrn Negative U Benzodiazepines Scrn Negative U Cocaine Metab Screen Negative U Marijuana (THC) Screen Negative 07/06/25 07/06/25 07/06/25 00:18 00:50 10:06 WBC 6.0 RBC 4.68 Hgb 15.6 Hct 44.4 MCV 95 MCH 33.3 MCHC 35.1 RDW Std Deviation 43.2 Plt Count 192 Neut % (Auto) 51 Lymph % (Auto) 36 Walsh % (Auto) 10 Eos % (Auto) 2 Baso % (Auto) 1 Neut # (Auto) 3.1 Lymph # (Auto) 2.2 Walsh # (Auto) 0.6 Eos # (Auto) 0.1 Baso # (Auto) 0.0 Immature Gran # (Auto) 0.02 H Absolute Nucleated RBC 0.00 Immature Gran % 0 Nucleated RBC % 0 PT INR APTT 32.5 Sodium 140 Potassium 4.2 Chloride 105 Carbon Dioxide 26.8 Anion Gap 8 BUN 9 Creatinine 0.8 Estim Creat Clear Calc 113.5 eGFR > 60 BUN/Creatinine Ratio 11 L Glucose [address] Glu mg/dL 103 Hemoglobin A1c 5.2 Calculated Osmolality 277 Calcium 8.7 Corrected Calcium 8.7 Phosphorus 2.3 L Magnesium 2.3 Total Bilirubin 1.6 H D AST 38 H ALT 23 Alkaline Phosphatase 91 Troponin I 9.192 H* D 6.633 H* D B-Natriuretic Peptide Total Protein 6.5 Albumin 4.2 Globulin 2.3 Albumin/Globulin Ratio 1.8 Triglycerides 103 Cholesterol 142 LDL Cholesterol, Calc 87 HDL Cholesterol 34 L Cholesterol/HDL Ratio 4.2 TSH 3.92 Ur Collection Type Urine Color Urine Clarity Urine pH Ur Specific [place] Urine Protein Urine Glucose (UA) Urine Ketones Urine Blood Urine Nitrite Urine Bilirubin Urine Urobilinogen (Auto) Ur Leukocyte Esterase Urine RBC Urine WBC Ur Squamous Epith Cells Urine Bacteria Urine Opiates Screen Urine Fentanyl Screen Ur Barbiturates Screen U Amphetamin/Meth Scrn U Benzodiazepines Scrn U Cocaine Metab Screen U Marijuana (THC) Screen 07/06/25 13:10 WBC RBC Hgb Hct MCV MCH MCHC RDW Std Deviation Plt Count Neut % (Auto) Lymph % (Auto) Walsh % (Auto) Eos % (Auto) Baso % (Auto) Neut # (Auto) Lymph # (Auto) Walsh # (Auto) Eos # (Auto) Baso # (Auto) Immature Gran # (Auto) Absolute Nucleated RBC Immature Gran % Nucleated RBC % PT INR APTT Sodium Potassium Chloride Carbon Dioxide Anion Gap BUN Creatinine Estim Creat Clear Calc eGFR BUN/Creatinine Ratio Glucose Estimated Ave Glu mg/dL Hemoglobin A1c Calculated Osmolality Calcium Corrected Calcium Phosphorus Magnesium Total Bilirubin AST ALT Alkaline Phosphatase Troponin I 6.529 H* B-Natriuretic Peptide Total Protein Albumin Globulin Albumin/Globulin Ratio Triglycerides Cholesterol LDL Cholesterol, Calc HDL Cholesterol Cholesterol/HDL Ratio TSH Ur Collection Type Urine Color Urine Clarity Urine pH Ur Specific [place] Urine Protein Urine Glucose (UA) Urine Ketones Urine Blood Urine Nitrite Urine Bilirubin Urine Urobilinogen (Auto) Ur Leukocyte Esterase Urine RBC Urine WBC Ur Squamous Epith Cells Urine Bacteria Urine Opiates Screen Urine Fentanyl Screen Ur Barbiturates Screen U Amphetamin/Meth Scrn U Benzodiazepines Scrn U Cocaine Metab Screen U Marijuana (THC) Screen Quality Measures Quality Measures VTE therapy Assessment & Plan Assessment Current Active Medications: Generic Name Dose Route Start Last Admin Trade Name Freq PRN Reason Stop Dose Admin Acetaminophen 650 mg 07/05/25 21:35 Acetaminophen 325 Mg Tablet PO 08/04/25 21:34 Q6H PRN Fever >100.4 Acetaminophen 650 mg 07/05/25 21:35 07/06/25 03:57 Acetaminophen 325 Mg Tablet PO 08/04/25 21:34 650 mg Q6H PRN Administration PAIN SCALE 1-3 (mild Hydrocodone Bitart/Acetaminophen 1 tab 07/06/25 11:27 07/06/25 11:34 Hydrocodone/Apap 5/325 Tablet PO 07/11/25 11:26 1 tab Q4HR PRN Administration PAIN SCALE 4-6 (Moderate Aspirin 81 mg 07/06/25 09:00 07/06/25 07:51 Aspirin Ec 81 Mg Tabec PO 08/05/25 08:59 81 mg QDAY ADRI Administration Atorvastatin Calcium 80 mg 07/05/25 21:30 07/05/25 22:34 Atorvastatin Calcium 20 Mg Tablet PO 08/04/25 21:29 80 mg HS ADRI Administration Hydroxyzine HCl 25 mg 07/05/25 21:59 07/05/25 23:02 Hydroxyzine Hcl 25 Mg Tablet PO 08/04/25 21:58 25 mg Q6HR PRN Administration ANXIETY/Insomnia Metoprolol Succinate 25 mg 07/06/25 09:00 07/06/25 13:09 Metoprolol Succinate Xl 25 Mg Tabcr PO 08/05/25 08:59 25 mg QDAY ADRI Administration Nitroglycerin 1 inch 07/06/25 01:22 Nitroglycerin Oint 2% 1 Inch Packet TOP 08/05/25 00:00 Q6HR PRN CHEST PAIN Nitroglycerin 0.4 mg 07/06/25 09:39 Nitroglycerin 0.4 Mg Subl Btl #25 SL Q5MIN PRN CHEST PAIN Sodium Chloride 3 ml 07/06/25 09:39 Sodium Chloride Rt Venita 0.9% 3 Ml Nebu INH 08/05/25 09:38 PRN PRN SOLN Ticagrelor 90 mg 07/06/25 09:00 07/06/25 07:51 Ticagrelor 90 Mg Tablet PO 08/05/25 08:59 90 mg BID ADRI Administration Plan Assessment 54-year-old male with psoriasis/psoriatic arthritis on Cosentyx and testosterone therapy, current smoker, presenting with 3 days of chest pain and shortness of breath, found to have elevated troponin and ischemic EKG changes, consistent with NSTEMI, type I. # NSTEMI, type 1 3 days of pressure-like chest pain/SOB that worsened at the gym with radiation to throat. Troponin up to 9.192, but downtrending at this time. EKG with inferior SC and T-wave abnormalities. Cath done on 07/06 with one stent placed, pending final report. Denies any personal or family cardiac history. Denies hypertension or hyperlipidemia. Suspect heart attack secondary to testosterone replacement therapy, given chronic testosterone use of 2 years, possibly causing hyperviscosity of blood and decreased estrogen. No known cardiac history, and no history of diabetes. ASCVD risk: 8.2-10.1%. Plan: - Cardiology consulted, appreciate recs - Continue heparin drip per protocol - Aspirin 325 mg load then 81 mg daily - Brilinta 90 mg BID - Metoprolol succinate 25 mg daily (hold if HR < 50) - Nitro patch q6h PRN (hold SBP < 100, MAP < 65, HR < 50 or) - Atorvastatin 80 mg po nightly - Maintain K>4.0 and Mag>2.0 - Repeat EKG if recurrent pain # Tobacco use disorder Current daily smoker. Plan: - Counseling provided - Offer nicotine patch/gum if needed # Psoriasis / Psoriatic arthritis On Cosentyx, switched from Tremfya, ongoing joint pain. Plan: - Hold biologic while inpatient - Resume with his outpatient derm/rheum specialist # Testosterone replacement therapy # Gynecomastia On TRT ?2 yrs, possible contributor to CAD risk, with noted gynecomastia. Plan: - Hold on testosterone, given risk of repeat SC - Monitor clinically - Outpatient endocrinology/PCP follow-up for risk/benefit discussion # Hyperlipidemia screening LDL 87 on 07/06/25. Goal LDL <70 Plan: - atorvastatin 80 mg po QD # Diabetes screening - A1c 5.2% Health Maintenance Disposition: Admit to telemetry, cardiology following Feeding: Cardiac diet, NPO after midnight Thromboprophylaxis: On therapeutic heparin drip GI prophylaxis: Not indicated Code Status: Full Code Case discussed with my attending Dr. Santana, and senior resident, Dr. Marcie Almonte, S4 Attending Provider Attestation/Addendum I have discussed and was present for the essential components of the history, physical examination, diagnosis, and treatment plan with the resident. I agree with the patient's care as documented by the resident and amended herein by me. Seth Santana DO. Although this document has been carefully reviewed, there may still be some phonetic and other typographical errors. These errors are purely grammatical due to imperfections in the software program and should not be construed in any way to compromise the substance of the patient's medical care during this visit. Patient seen and evaluated this AM. Patient admitted for type I NSTEMI, presently on heparin drip, aspirin, Brilinta, as needed nitro, metoprolol, will undergo cardiac catheterization today, cardiology consulted, appreciate recommendations.
[2025-07-06 16:14] LABS: ACT (CATH LAB ONLY) 271.0 Seconds (89-169)
--- NOTE | 2025-07-06 17:23 | ESOP_ITS ---
RE: ELISEO ROY : 1970 DATE OF OPERATION: 07/06/2025 PROCEDURES PERFORMED: 1. Emergency diagnostic left heart cardiac catheterization, selective coronary angiogram, left ventricular angiogram, CPT 49600. 2. Emergency primary angioplasty stent placement of the right coronary artery, infarct vessel with diagnosis of acute myocardial infarction, CPT code 16949. 3. Emergency coronary thrombectomy of the right coronary artery using Penumbra computer-assisted vacuum thrombectomy (CAVT). 4. Placement of 3.5 x 30 mm drug-eluting Dunlap Medtronic stent. Post-stent deployment balloon dilation with 4 mm noncompliant balloon. Deployment of stent in the proximal RCA. Preprocedure stenosis 100%, postprocedure stenosis 0%. Preprocedure FAMILIA flow 0, postprocedure FAMILIA flow 3. 5. Ultrasound-guided access of the right radial artery. 6. Conscious sedation for 1-hour duration. DIAGNOSES: Acute inferior wall myocardial infarction, T wave changes, late presentation with troponin elevation. HISTORY AND INDICATIONS: The patient is a 54-year-old man in fair health, who exercises regularly in physical fit condition. He has been doing well until recently. Two days ago, patient experienced severe substernal burning chest pain radiating to the neck. It lasted for several hours on Friday night. Two days ago, he came to the hospital emergency yesterday with episode of continued chest pain when he is exerting and tightness in the chest and neck discomfort. He went to the primary care physician, Dr. Dinh's office where he was seen by Dr. Dinh, concerned and sent to the emergency room. In the emergency department, initial troponin was already 9.0. EKG showed T inversions in inferior leads and inferolateral leads suspicious of acute recent myocardial infarction. Because of continued ongoing chest pain, he was admitted to the hospital and placed on nitroglycerin and aspirin. Brillinta was given and heparin was started. The patient was recommended to have coronary angiogram this morning and patient did have delayed presentation. Hence, it was not called a STEMI. DESCRIPTION OF PROCEDURE: The patient was brought to cardiac catheterization lab where he was given 2 mg of Versed and 100 mcg of fentanyl for conscious sedation. The right radial approach was taken. Right radial artery was cannulated by micropuncture technique and a 6- Malay Glidesheath was introduced. Selective right and left coronary angiogram was performed by TIG-4 and JL3.5 diagnostic catheters. Left ventricular angiogram and left heart catheterization were performed by TIG-4 diagnostic catheter. The patient tolerated the procedure well. No complications. After the diagnostic procedures were complete, intervention was undertaken. Right coronary angiogram showed evidence of complete occlusion of right coronary artery with presence of thrombus. Left coronary system: Left main coronary artery is normal. Left anterior descending artery showed no significant stenosis. Circumflex artery is normal. There is extensive collateral given to the right side all the way to the mid RCA. Left ventricular pressure was recorded to be 110/5, aortic pressure 110/70, no gradient across the aortic valve. Left ventricular angiogram showed evidence of mild inferolateral hypokinesis. Ejection fraction was 55%-60%. PCI details are as follows: The patient was given extra heparin of another 4000 units. ACT was therapeutic. Already, patient was loaded with aspirin and Brilinta. Proceeded with PCI. Right coronary artery was cannulated by FR4 guiding catheter. A 0.014 Runthrough guidewire was used to cross the lesion successfully, but the wire went to the RV branch and left it in the RV branch. I proceeded with 0.014 Utility Locate Technician 50 guidewire, crossed the lesion successfully and placed in the distal RCA. Initial balloon angioplasty was performed with 2.5 mm x 15 mm balloon and there was establishment of FAMILIA 2 flow, but it then became FAMILIA 1 flow. There was extensive thrombus as well. The RV branch was occluded. Hence, I dilated the RV branch with 2.0 x 12 mm balloon. Subsequently, there was extensive thrombus in the proximal RCA. I was concerned about embolization. Hence, Penumbra computer-assisted vacuum thrombectomy device was used and thrombectomy was successfully performed. Subsequently, we proceeded with angioplasty 3.5 x 15 mm balloon, which was used to dilate the lesion and 3.5 x 30 mm Medtronic Dunlap drug-eluting stent was deployed successfully with excellent angiographic result. A 4 mm NC balloon was used to dilate the lesion successfully with 14 atmospheres of pressure with excellent results. Final angiogram showed widely patent RCA with no residual stenosis and FAMILIA flow improved from 0 up to 3. TR band was applied and hemostasis was secured. Because of extensive thrombus, I gave the patient double bolus of eptifibatide (Integrilin). The patient will continue on aspirin and Brilinta. We will watch him overnight and possibly discharge him home tomorrow if he is asymptomatic. Of note, patient has a history of using testosterone. I would strongly recommend him to stop it completely going forward. DT: 16:24:44 TT: 17:21:00 Ref: [id number] - TID: [id number]
[2025-07-06] MEDS: ATORVASTATIN CALCIUM 20 MG TABLET 80 MG PO (21:33)
[2025-07-07] VITALS (9 sets, daily range): BP systolic 104–127; BP diastolic 55–70; PULSE 49–74; RESP 14–96; TEMP 36–36.3; O2SAT 95–98
[2025-07-07 06:00] LABS: Basophils # (Auto) 0.0 Thou/mm3 (0.0-0.2); Basophils % (Auto) 1 % (0-2.5); Eosinophils # (Auto) 0.1 Thou/mm3 (0.0-0.5); Eosinophils % (Auto) 2 % (0-10); Hematocrit 44.5 % (41.0-53.0); Hemoglobin 15.5 g/dL (13.5-16.0); Immature Granulocytes Auto 0.01 Thou/mm3 (0.00-0.00); Lymphocytes # (Auto) 1.5 Thou/mm3 (1.0-4.8); Lymphocytes % (Auto) 30 % (10-50); Mean Corpuscular HGB Conc 34.8 g/dl (31.0-37.0); Mean Corpuscular Hemoglobin 33.0 pg (25.0-35.0); Mean Corpuscular Volume 95 fL (80-100); Monocytes # (Auto) 0.6 Thou/mm3 (0.0-0.8); Monocytes % (Auto) 11 % (0-12); Neutrophils # (Auto) 2.9 Thou/mm3 (1.8-7.7); Neutrophils % (Auto) 56 % (37-80); Nucleated Red Blood Cell # 0.00 Thou/mm3 (0.00-0.00); Nucleated Red Blood Cell % 0 /100 WBC (0); Platelet Count 165 Thou/mm3 (140-440); RDW Standard Deviation 42.8 fL (35.1-43.9); Red Blood Count 4.69 Miln/mm3 (4.50-5.90); White Blood Count 5.1 Thou/mm3 (3.8-10.6)
[2025-07-07 06:02] LABS: INR 1.0 (0.9-1.3); Partial Thromboplastin Time 27.9 Seconds (22.0-36.0); Prothrombin Time 10.8 Seconds (9.0-12.2)
[2025-07-07 06:15] LABS: Alanine Aminotransferase 23 U/L (10-49); Albumin, Serum 4.0 gm/dL (3.5-5.0); Albumin/Globulin Ratio 1.7 (1.2-2.2); Alkaline Phosphatase 91 U/L (46-116); Anion Gap 8 (7-16); Aspartate Amino Transferase 31 U/L (0-34); BUN/Creatinine Ratio 10 Ratio (12-20); Bilirubin,Total 0.8 mg/dL (0.3-1.2); Blood Urea Nitrogen 10 mg/dL (9-23); Calcium 9.1 mg/dL (8.3-10.6); Calcium (Corrected) 9.1 mg/dL (8.5-10.1); Carbon Dioxide 27.7 mMol/L (20.0-31.0); Chloride 104 mMol/L (98-107); Creatinine (Component) 1.0 mg/dL (0.6-1.3); Estimated Creatinine Clearance 90.8 mL/min (>60); Globulin 2.4 gm/dL (2.3-3.5); Glucose 94 mg/dL (74-106); Magnesium 1.7 mg/dL (1.6-2.6); Osmolality,Calculated 278 (275-295); Phosphorous 3.0 mg/dL (2.4-5.1); Potassium 4.2 mMol/L (3.4-5.1); Sodium 140 mMol/L (136-145); Total Protein 6.4 gm/dL (5.7-8.2); eGFR > 60 See Note
[2025-07-07] MEDS: Magnesium Sulfate 2 GM Ivpb 2 GM/50 ML BAG IV (09:19)
[2025-07-07] MEDS: ASPIRIN EC 81 MG TABEC PO (09:20)
[2025-07-07] MEDS: METOPROLOL SUCCINATE XL 25 MG TABCR PO (09:20)
[2025-07-07] MEDS: TICAGRELOR 90 MG TABLET PO (09:20)
--- NOTE | 2025-07-07 11:10 | PC.SS ---
SS met with patient who is alert/oriented. Patient was able to verify demographics. Patient is independent with ADl's. He resides with , Patricia. Patient admitted for chest pain. Patient is employed. No limitations in functioning. Pharmacy: [facility]. Patient PCP: Dr. Dinh. Last appt. was earlier in week. Specialty physician at [facility] for arthritis. Alt medical decision maker: Patricia, , . Patient to d/c home today Transportation: family d/c plan: home no needs PCP: Dr. Dinh
--- NOTE | 2025-07-07 11:24 | PC.NURSE ---
As I was going to discharge patient, patient complained of SOB and slight pressure on his chest in intermittent episodes, last night and this morning. MD notified, will hold patient on tele floor until cardiology consults with patient.
--- NOTE | 2025-07-07 14:20 | ESPR_ITS ---
<Statement entered by Clifton Jack MD - 07/07/25 15:57> I have reviewed the note and agree with the resident's assessment & plan with exceptions as below. I have personally reviewed labs, imaging, home meds/prior records, examined the patient, formulated and discussed management plan with the IM team. Patient examined at bedside today. No acute overnight events. Patient was to be discharged, however started to have some shortness of breath. Will and on discharge and follow-up with further cardiology recommendations. Patient currently on DAPT therapy, added ARB at this time, high intensity statin, holding metoprolol at this time due to concern for bradycardia. Anticipate discharge in the next 24 to 48 hours. Spoke with patient in regards to stopping testosterone, however he will speak with his PCP in regards to tapering or stopping it completely. Repeat chemistry and hematology in the a.m. Clifton Jack, PGY-2 Internal Medicine Documentation for date of: 07/07/25 Subjective Subjective Interval history: No acute events overnight. Patient was examined at bedside. Vital signs and labs reviewed. Patient notes twitching sensation without pain at the mid-right chest, as well as shortness of breath and mild headache overnight and this morning. He denies chest pain or palpitations this morning. Denies dizziness or vision changes. Denies fever, chills, nausea, or vomiting. He states he has been using testosterone 0.5 cc/week for the last 2 years. Also notes intermittent use of testosterone prior to that, but not as consistently. Patient expresses he is amenable to discontinuing testosterone, however he expressed concerns about stopping vs tapering. Patient also states he is amenable to working on smoking cessation at this time. Exam Vital Signs Temp Pulse Resp BP Pulse Ox O2 Del Method O2 Flow Rate 97.1 F 58 L 18 127/69 97 Room Air 6 07/07/25 12:00 07/07/25 12:00 07/07/25 12:00 07/07/25 12:00 07/07/25 12:07/07/25 12:07/06/25 16:00 Narrative Exam GENERAL: A&OX3. No acute distress. Not diaphoretic. HEENT: Normocephalic. Moist mucous membranes. No scleral icterus. EOMI CHEST: Gynecomastia. CV: Regular rate and rhythm. S1 and S2 heard. No murmurs. PULM: No accessory muscle use. CTAB. No wheezing or crackles. EXTREMITIES: No lower extremity edema SKIN: Warm and dry. NEURO: Moving all extremities spontaneously. No aphasia. No facial asymmetry. PSYCH: Cooperative with exam. Objective Labs 07/07/25 04:40 07/07/25 04:40 Labs: Laboratory Results - last 24 hr 07/06/25 07/07/25 08:56 04:40 WBC 5.1 RBC 4.69 Hgb 15.5 Hct 44.5 MCV 95 MCH 33.0 MCHC 34.8 RDW Std Deviation 42.8 Plt Count 165 Neut % (Auto) 56 Lymph % (Auto) 30 [place] % (Auto) 11 Eos % (Auto) 2 Baso % (Auto) 1 Neut # (Auto) 2.9 Lymph # (Auto) 1.5 [place] # (Auto) 0.6 Eos # (Auto) 0.1 Baso # (Auto) 0.0 Immature Gran # (Auto) 0.01 H Absolute Nucleated RBC 0.00 Immature Gran % 0 Nucleated RBC % 0 PT 10.8 INR 1.0 APTT 27.9 Activated Clotting Time 271.0 H Sodium 140 Potassium 4.2 Chloride 104 Carbon Dioxide 27.7 Anion Gap 8 BUN 10 Creatinine 1.0 Estim Creat Clear Calc 90.8 eGFR > 60 BUN/Creatinine Ratio 10 L Glucose 94 Calculated Osmolality 278 Calcium 9.1 Corrected Calcium 9.1 Phosphorus 3.0 Magnesium 1.7 Total Bilirubin 0.8 D AST 31 ALT 23 Alkaline Phosphatase 91 Total Protein 6.4 Albumin 4.0 Globulin 2.4 Albumin/Globulin Ratio 1.7 Quality Measures Quality Measures VTE therapy Assessment & Plan Assessment Current Active Medications: Generic Name Dose Route Start Last Admin Trade Name Freq PRN Reason Stop Dose Admin Acetaminophen 650 mg 07/05/25 21:35 Acetaminophen 325 Mg Tablet PO 08/04/25 21:34 Q6H PRN Fever >100.4 Acetaminophen 650 mg 07/05/25 21:35 07/06/25 03:57 Acetaminophen 325 Mg Tablet PO 08/04/25 21:34 650 mg Q6H PRN Administration PAIN SCALE 1-3 (mild Hydrocodone Bitart/Acetaminophen 1 tab 07/06/25 11:27 07/06/25 21:33 Hydrocodone/Apap 5/325 Tablet PO 07/11/25 11:26 1 tab Q4HR PRN Administration PAIN SCALE 4-6 (Moderate Aspirin 81 mg 07/06/25 09:00 07/07/25 09:20 Aspirin Ec 81 Mg Tabec PO 08/05/25 08:59 81 mg QDAY ADRI Administration Atorvastatin Calcium 80 mg 07/05/25 21:30 07/06/25 21:33 Atorvastatin Calcium 20 Mg Tablet PO 08/04/25 21:29 80 mg HS ADRI Administration Hydroxyzine HCl 25 mg 07/05/25 21:59 07/07/25 05:38 Hydroxyzine Hcl 25 Mg Tablet PO 08/04/25 21:58 25 mg Q6HR PRN Administration ANXIETY/Insomnia Metoprolol Succinate 25 mg 07/06/25 09:00 07/07/25 09:20 Metoprolol Succinate Xl 25 Mg Tabcr PO 08/05/25 08:59 25 mg QDAY ADRI Administration Nitroglycerin 1 inch 07/06/25 01:22 Nitroglycerin Oint 2% 1 Inch Packet TOP 08/05/25 00:00 Q6HR PRN CHEST PAIN Nitroglycerin 0.4 mg 07/06/25 09:39 Nitroglycerin 0.4 Mg Subl Btl #25 SL Q5MIN PRN CHEST PAIN Sodium Chloride 3 ml 07/06/25 09:39 Sodium Chloride Rt Venita 0.9% 3 Ml Nebu INH 08/05/25 09:38 PRN PRN SOLN Ticagrelor 90 mg 07/06/25 09:00 07/07/25 09:20 Ticagrelor 90 Mg Tablet PO 08/05/25 08:59 90 mg BID ADRI Administration Plan Assessment 54-year-old male with psoriasis/psoriatic arthritis on Cosentyx and testosterone therapy, current smoker, presenting with 3 days of chest pain and shortness of breath, found to have elevated troponin and ischemic EKG changes, consistent with NSTEMI, type I. # NSTEMI, type 1 3 days of pressure-like chest pain/SOB that worsened at the gym with radiation to throat. Troponin up to 9.192, but downtrending at this time. EKG with inferior [place] and T-wave abnormalities. Cath done on 07/06 with one stent placed, pending final report. Denies any personal or family cardiac history. Denies hypertension or hyperlipidemia. Suspect heart attack secondary to testosterone replacement therapy, given chronic testosterone use of 2 years, possibly causing hyperviscosity of blood and decreased estrogen. No known cardiac history, and no history of diabetes. ASCVD risk: 8.2-10.1%. Plan: - Cardiology consulted, appreciate recs. - Discussed stopping testosterone with patient. Patient planning to discuss with PCP - Continue heparin drip per protocol - Aspirin 325 mg load then 81 mg daily - Brillinta 90 mg BID - Metoprolol succinate 25 mg daily (hold if HR < 50) - Nitro patch q6h PRN (hold SBP < 100, MAP < 65, HR < 50 or) - Atorvastatin 80 mg po nightly - Maintain K>4.0 and Mag>2.0 - Repeat EKG if recurrent pain - Plan to discharge on atorvastatin, aspirin, and Brillinta # Tobacco use disorder Current daily smoker. Plan: - Counseling provided - Nicotine patch 14 mg QD PRN # Psoriasis / Psoriatic arthritis On Cosentyx, switched from Tremfya, ongoing joint pain. Plan: - Hold biologic while inpatient - Resume with his outpatient derm/rheum specialist # Testosterone replacement therapy # Gynecomastia On TRT ?2 yrs, possible contributor to CAD risk, with noted gynecomastia. Plan: - Hold on testosterone, given risk of repeat [place] - Monitor clinically - Outpatient endocrinology/PCP follow-up for risk/benefit discussion # Hyperlipidemia screening LDL 87 on 07/06/25. Goal LDL <70 Plan: - atorvastatin 80 mg po QD # Diabetes screening - A1c 5.2% Health Maintenance Disposition: Admit to telemetry, cardiology following Feeding: Cardiac diet Thromboprophylaxis: On therapeutic heparin drip GI prophylaxis: Not indicated Code Status: Full Code Case discussed with my attending Dr. Santana, and senior resident, Dr. Marcie Almonte, OMS4 Attending Provider Attestation/Addendum I have discussed and was present for the essential components of the history, physical examination, diagnosis, and treatment plan with the resident. I agree with the patient's care as documented by the resident and amended herein by me. Seth Santana DO. Although this document has been carefully reviewed, there may still be some phonetic and other typographical errors. These errors are purely grammatical due to imperfections in the software program and should not be construed in any way to compromise the substance of the patient's medical care during this visit. Patient seen and evaluated this AM. No acute events overnight, postop day 1 from PCI right RCA stent placement. Patient was found this morning at bedside visit, we did plan to discharge the patient however earlier in the afternoon, the patient did become short of breath hence we will hold the patient today pending further cardiology evaluation. The patient was advised to stop testosterone therapy and to quit smoking and he understood and agreed. Will continue to monitor closely while he is here, likely discharge 07/08 if he improves tomorrow.
--- NOTE | 2025-07-07 14:20 | ESDS_ITS ---
<Statement entered by Clifton Jack MD - 07/08/25 16:45> I have reviewed the note and agree with the resident's assessment & plan with exceptions as below. I have personally reviewed labs, imaging, home meds/prior records, examined the patient, formulated and discussed management plan with the IM team. Patient examined at bedside today. No acute overnight events. Patient was then discharged after being medically cleared from cardiology. Patient's Brilinta was switched to Plavix. Patient was instructed to stop taking testosterone And to Discuss This with His Primary Care Doctor As This Is a Likely Risk Factor for Him to Have a Myocardial Infarction. Patient was then discharged the following instructions. Clifton Jack, PGY-2 Internal Medicine Planned Discharge Date 07/07/25 DS: Providers Provider Date of admission: 07/05/25 21:35 Primary care physician: Physician Amber Primary/Family Admitting Provider: Denny Welch MD Attending Provider on Admission: Cheo Santana DO Consults: 07/05/25 19:54 Consult to Cardiology Stat Comment: NSTEMI Consulting Provider: Britt Guardado Attending Provider on DC: Cheo Santana DO Discharging Provider: Cheo Santana DO DS: Diagnosis Problem List Completed Was Problem List Reviewed/Reconciled?: Yes Hospital Course Hospital Course Hospital course: 54-year-old male with PMH psoriasis/psoriatic arthritis on Cosentyx and testosterone therapy, and current smoker, admitted for NSTEMI type I. ED course: BP 149/92 --> 137/76, HR stable, SpO2 normal. EKG: sinus rhythm, inferior NH of indeterminate age, T-wave abnormalities. Labs: troponin 9.023, BNP 238, AST 53. CXR NAD. Cardiology consulted, diagnosed NSTEMI, started heparin drip, ASA, Brilinta, nitro, metoprolol. Hospital course: Patient reported pressure-like chest pain with radiation to throat and shoulders (he doesn't recall which side) since 07/03/25, but worsened about 5-10 minutes after starting weight training at the gym on 07/05 afternoon. Emergency cath, thrombectomy, and stent placement in proximal RCA done on 07/06 with improvement in symptoms. He noted ongoing shortness of breath without chest pain or palpitations on 07/07 morning. Patient examined by Cardiology and dyspnea thought to be secondary to Brillinta. Patient switched from Brillinta to Plavix. Discussed stopping testosterone with patient, which he reports to be taking 0.5cc/week consistently for approximately 2 years, but also inconsistently prior to that. Also discussed smoking cessation with patient. Patient hemodynamically stable at discharge and denies any additional questions or concerns at this time. Consults during this admission: Cardiology, Dr. Guardado Discharge Instructions: Follow-up with your PCP within 1 week Take your medicines as prescribed You will need to take Aspirin and Plavix for one year Follow up with your commercial representative, Dr. Guardado within one week of discharge Take your new cholesterol medicine as prescribed I am prescribing you a new blood pressure, Losartan, take as prescribed Perform an Echo with your commercial representative outpatient Use nicotine patches as needed STOP TAKING TESTESTERONE. Speak with your PCP and get referred to an furnace roaster in regards to alternative therapies Return to ED if your symptoms worsen or return Problem list: # NSTEMI, type 1 # Tobacco use disorder # Psoriasis / Psoriatic arthritis # Testosterone replacement therapy # Gynecomastia # Hyperlipidemia screening # Diabetes screening - A1c 5.2% Case discussed with my attending Dr. Santana, and senior resident, Dr. Marcie Almonte, OMS4 Time Spent with Patient Time attestation: Total time spent providing and/or coordinating discharge services: Time spent: Greater than 30 minutes Exam Vital Signs Temp Pulse Resp BP Pulse Ox O2 Del Method O2 Flow Rate 97.1 F 58 L 18 127/69 97 Room Air 6 07/07/25 12:00 07/07/25 12:07/07/25 12:07/07/25 12:07/07/25 12:07/07/25 12:07/06/25 16:00 Narrative Exam GENERAL: A&OX3. No acute distress. Not diaphoretic. HEENT: Normocephalic. Moist mucous membranes. No scleral icterus. EOMI CV: Regular rate and rhythm. S1 and S2 heard. No murmurs. PULM: No accessory muscle use. CTAB. No wheezing or crackles. EXTREMITIES: No lower extremity edema SKIN: Warm and dry. NEURO: Moving all extremities spontaneously. No aphasia. No facial asymmetry. PSYCH: Cooperative with exam. Discharge Plan Plan Patient Disposition: HOME (Self Care) Patient condition on transfer: Stable Care Plan Goals: Discharge instructions Follow-up with your PCP within 1 week Take your medicines as prescribed You will need to take Aspirin and Plavix for one year Follow up with your commercial representative, Dr. Guardado within one week of discharge Take your new cholesterol medicine as prescribed I am prescribing you a new blood pressure, Losartan, take as prescribed Perform an Echo with your commercial representative outpatient Use nicotine patches as needed STOP TAKING TESTESTERONE. Speak with your PCP and get referred to an furnace roaster in regards to alternative therapies Return to ED if your symptoms worsen or return Prescriptions/Referrals Prescriptions/Med Rec: New aspirin 81 mg Tablet,Delayed Release (Dr/Ec) 81 mg PO QDAY 7 Days Qty: 7 0RF atorvastatin 20 mg tablet 20 mg PO QPM 7 Days Qty: 7 0RF nicotine 14 mg/24 hr patch 24 hour 14 mg topical QDAY 7 Days Qty: 7 0RF Rx Instructions: Use as directed losartan 25 mg tablet 25 mg PO QDAY 14 Days Qty: 14 0RF Rx Instructions: Take one tablet by mouth every day clopidogrel [Plavix] 75 mg tablet 75 mg PO QDAY 14 Days Qty: 14 0RF Rx Instructions: Take one tablet by mouth every day Continued Cosentyx Pen 150 mg/mL pen injector 150 mg SUBCUT .MONTHLY Referrals: No Primary/Family,Physician [Primary Care Provider] - Britt Guardado MD [Physician] - Patient/Caregiver Discharge Instructions Education Materials: Total Testosterone, PCI Blood Thinners, Angioplasty and Stent Placement for the Heart, [facility] Percutaneous Coronary Intervention Discharge Instructions Print Language: Kazakh Stand Alone Forms: [employer] Award Info., Patient Portal Info Letter Discharge Order Discharge Orders: Discharge (Routine); Ordered 07/07/25 Ordered By: Clifton Jack Quality Discharge Quality Measures VTE prophylaxis Attestestation Attestation I have discussed and was present for the essential components of the discharge history, physical examination, diagnosis, and discharge treatment plan with the resident. I agree with the patient's discharge care as documented by the resident and amended herein by me. Seth Santana DO. The patient understood all discharge instructions, all questions were answered satisfactorily. The patient was instructed to return to the Emergency Department is symptoms worsened or persisted. Patient was stable, afebrile, tolerating p.o. intake and ambulatory times discharge. Cardiology has cleared the discharge status post PCI to include stent placement in the RCA. Patient discharged on aspirin and Plavix per cardiology recommendations, patient will need follow-up with his PCP and cardiology within 7 to 10 days of discharge. Although this document has been carefully reviewed, there may still be some phonetic and other typographical errors. These errors are purely grammatical due to imperfections in the software program and should not be construed in any way to compromise the substance of the patient's medical care during this visit.
[2025-07-07] MEDS: HYDROcodone/APAP 5/325 TABLET 1 TAB PO (14:45)
--- NOTE | 2025-07-07 20:25 | ESPR_ITS ---
<Statement entered by Britt Guardado MD - 07/07/25 22:43> I personally examined evaluated patient with resident physician Dr. Webber PGY1 patient had a PCI stent placed in RCA excellent result clinically doing very well as shortness of breath due to Brilinta recommend stopping Brilinta discharging home on Plavix 75 daily aspirin daily 81 mg follow-up in 1 week in my office statin dose as tolerated low-dose ARB also being given condition stable I will see him for follow-up recommend to be off work for 2 weeks before resumed work first week of July. Documentation for date of: 07/07/25 Subjective Subjective Interval history: Patient mentions that he has felt slightly short of breath while lying down. He was due to discharge earlier but stayed longer due to this new symptom. Vitals were reviewed and are stable. Will make 1 change to patient's anticoagulation regimen from Brilinta to Plavix. Exam Vital Signs Temp Pulse Resp BP Pulse Ox O2 Del Method O2 Flow Rate 97.4 F 60 14 109/55 L 95 Room Air 6 07/07/25 15:56 07/07/25 16:00 07/07/25 15:56 07/07/25 15:56 07/07/25 15:56 07/07/25 15:56 07/06/25 16:00 Narrative Exam General: Awake and in no acute distress. Conversational and non-toxic appearing. Neurologic: GCS 15. Alert and oriented x3, no gross neurological deficit, and patient able to move all 4 extremities. HEENT: Normocephalic, atraumatic, mucous membranes moist. Pupils reactive to light. Heart: Regular rate and rhythm, normal S1 and S2, no murmurs. Lungs: Clear to auscultation bilaterally with no wheezing or crackles. Abdomen: Soft, nondistended, nontender, positive bowel sounds. No guarding or rebound tenderness. Extremities: No edema. 2+ radial and dorsalis pedis pulses bilaterally. Skin: Warm. Dry. No rash or ecchymoses. Objective Labs 07/07/25 04:40 07/07/25 04:40 Labs: Laboratory Results - last 24 hr 07/07/25 04:40 WBC 5.1 RBC 4.69 Hgb 15.5 Hct 44.5 MCV 95 MCH 33.0 MCHC 34.8 RDW Std Deviation 42.8 Plt Count 165 Neut % (Auto) 56 Lymph % (Auto) 30 [place] % (Auto) 11 Eos % (Auto) 2 Baso % (Auto) 1 Neut # (Auto) 2.9 Lymph # (Auto) 1.5 [place] # (Auto) 0.6 Eos # (Auto) 0.1 Baso # (Auto) 0.0 Immature Gran # (Auto) 0.01 H Absolute Nucleated RBC 0.00 Immature Gran % 0 Nucleated RBC % 0 PT 10.8 INR 1.0 APTT 27.9 Sodium 140 Potassium 4.2 Chloride 104 Carbon Dioxide 27.7 Anion Gap 8 BUN 10 Creatinine 1.0 Estim Creat Clear Calc 90.8 eGFR > 60 BUN/Creatinine Ratio 10 L Glucose 94 Calculated Osmolality 278 Calcium 9.1 Corrected Calcium 9.1 Phosphorus 3.0 Magnesium 1.7 Total Bilirubin 0.8 D AST 31 ALT 23 Alkaline Phosphatase 91 Total Protein 6.4 Albumin 4.0 Globulin 2.4 Albumin/Globulin Ratio 1.7 Quality Measures Quality Measures VTE prophylaxis Assessment & Plan Plan A 54-year-old man with psoriasis, psoriatic arthritis (on COSENTYX), and testosterone replacement presented with 3 days of chest pain described as pressure-like and radiating to the throat, worsened with exertion. He denied jaw/arm pain, diaphoresis, or GI symptoms. No history of CAD, HTN, DM, or HLD. Social history notable for daily smoking, social alcohol use, and high job stress. In the ED, vitals were stable, EKG showed sinus rhythm with inferior [place] of indeterminate age and T-wave changes. Labs revealed TROPONIN 9.023, BNP 238, AST 53. CXR was unremarkable. He was diagnosed with NSTEMI and started on HEPARIN infusion, ASPIRIN, BRILINTA, NITROGLYCERIN, and METOPROLOL. 1. NSTEMI 2. Elevated troponin 3. Tobacco use disorder 4. TESTOSTERONE use 5. New orthopnea on 07/07/2025 RECOMMENDATIONS: Patient was admitted for further management of NSTEMI. Guideline-directed medical therapy was initiated post stent placement with DAPT (ASPIRIN + BRILINTA), beta-michelle (METOPROLOL), anticoagulation (HEPARIN), and anti-anginal therapy (NITROGLYCERIN). Will monitor serial troponins, telemetry, and strict vitals. Secondary prevention to include initiation of high-intensity statin post-cath, counseling on smoking cessation, alcohol moderation, and long- term risk factor modification. Maintain K>4.0 and Mag>2.0. The patient's shortness of breath sensation while lying down is likely due to a side effect of Brilinta, making the patient feel air hungry. Will switch to Plavix and continue guideline directed medical therapy as described above Patient was seen and discussed with my attending physician Dr. Guardado. Tyshawn Webber DO PGY-1
== END 2025-07-07 19:15 | disposition home or self-care (01) | DRG 322 ==
LOC: SERX 18:35 → SERHOLD 21:50 → S2NX 07-06 04:11
PROVIDERS: Internal Medicine Cardiovascular Disease; Nurse Practitioner Primary Care; Admitting Provider Student in an Organized Health Care Education/Training Program; Emergency Provider Emergency Medicine; Visit Provider Student in an Organized Health Care Education/Training Program
PROC: 027034Z Dilation of Coronary Artery, One Artery with Drug-eluting Intraluminal Device, Percutaneous Approach (ICD-10-PCS; principal; 2025-07-06 13:30)
DX: I21.19 ST elevation (STEMI) myocardial infarction involving other coronary artery of inferior wall (principal); F17.200 Nicotine dependence, unspecified, uncomplicated; L40.50 Arthropathic psoriasis, unspecified; N62 Hypertrophy of breast; E78.5 Hyperlipidemia, unspecified; I25.10 Atherosclerotic heart disease of native coronary artery without angina pectoris; Z56.6 Other physical and mental strain related to work; Z71.6 Tobacco abuse counseling; Z79.02 Long term (current) use of antithrombotics/antiplatelets; Z79.82 Long term (current) use of aspirin; Z79.899 Other long term (current) drug therapy
CPT/HCPCS: 36415; 71046; 80053; 80061; 80307; 81001; 83036; 83735; 83880; 84100; 84443; 84484; 85025; 85347; 85610; 85730; 93005; 96365; 96366; 99152; 99153; 99284; A4649; C1725; C1769; C1874; C1887; C1894; J0168; J0461; J1200; J1327; J1643; J1644; J2250; J2270; J2312; J2371; J3010; J3475; J3490; Q9967; A9270

== ENCOUNTER → 2025-09-13 | Outpatient (CLI) | payer BC, SELFPAY ==
--- NOTE | 2025-09-13 13:50 | XR_ITS ---
Examination: Bilateral hands, 6 views. 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
--- NOTE | 2025-09-13 13:50 | XR_ITS ---
Exam: elbow bilateral, 6 views Technique: Elbow AP, oblique lateral each elbow total 6 views Exam date and time: September 05, 2025, 1306 hours INDICATIONS: Bilateral elbow pain a couple years. FINDINGS: No fracture or dislocation involving either elbow No arthritic change. No elbow effusions IMPRESSION: Negative for osseous abnormality.
== END | disposition home or self-care (01) ==
PROVIDERS: PCP Family Medicine; Referring Provider Student in an Organized Health Care Education/Training Program; Visit Provider Student in an Organized Health Care Education/Training Program
DX: M25.541 Pain in joints of right hand (principal); M25.542 Pain in joints of left hand; M25.522 Pain in left elbow; M25.521 Pain in right elbow
CPT/HCPCS: 73080; 73130

== ENCOUNTER → 2025-10-24 | Outpatient (CLI) | payer BC, SELFPAY ==
--- NOTE | 2025-10-24 12:45 | XR_ITS ---
Examination: MRI sacral spine without contrast Date and time of exam: October 24, 2025, 1311 hours INDICATIONS: Bilateral sacral pain 18 months Technique: Multiple MRI axial and sagittal sections sacral spine. Sagittal T2-weighted images, TR 3500, TE 118 T1 weighted transverse sections, TR 688 T8.5, T2-weighted sagittal sections T1 weighted sagittal sections TR 621, TE 30 T2 axial sections, TR 4, 190, TE 84. Findings: Adequate marrow signal involving bones of the pelvis and sacrum No edema about the sacroiliac joints No diastases sacroiliac joints Satisfactory alignment lower lumbar sacral and coccygeal segments No presacral mass Intact bladder IMPRESSION: Sacral segments intact Negative for sacroiliitis
== END | disposition home or self-care (01) ==
PROVIDERS: PCP Family Medicine
DX: M54.50 Low back pain, unspecified (principal); G89.29 Other chronic pain
CPT/HCPCS: 72195